=== PATIENT | female | born 1945 | race Caucasian/White ===

== ENCOUNTER → 2021-08-17 | Outpatient (CLI) | payer MEDICARE, OTHER | END | disposition home or self-care (01) | LOC: CARD DIAG 14:58 | PROVIDERS: ATTEND Nurse Practitioner | DX: I34.0 Nonrheumatic mitral (valve) insufficiency (principal); I10 Essential (primary) hypertension | CPT/HCPCS: 93306 ==

== ENCOUNTER 2022-07-18 07:53 | Emergency (ER) | payer MEDICARE, OTHER ==
[~2022-07-18] VITALS: Ht 157.5 cm; Wt 100.0 kg
[~2022-07-18 07:53] MED LIST: MORP15TA PO
[2022-07-18 09:12] LABS: BASOPHILS % (AUTO) 0.4 % (0-1); EOSINOPHILS % (AUTO) 0.1 % (0-6); HEMATOCRIT 30.7 % (35.0-45.0); HEMOGLOBIN 10.3 g/dl (12.0-16.0); LYMPHOCYTES # (AUTO) 0.7 X10'3 (1.1-4.8); LYMPHOCYTES % (AUTO) 9.8 % (21-51); MEAN CORPUSCULAR HEMOGLOBIN 31.7 PG (27.0-31.0); MEAN CORPUSCULAR HGB CONC 33.5 g/dL (33.0-36.5); MEAN CORPUSCULAR VOLUME 94.7 FL (78-98); MEAN PLATELET VOLUME 6.8 FL (7.4-10.4); MONOCYTES # (AUTO) 0.6 X10'3 (0-0.9); NEUTROPHILS # (AUTO) 5.5 X10'3 (1.8-7.7); NEUTROPHILS % (AUTO) 80.7 % (42-75); PLATELET COUNT 494 X10'3 (140-440); RED BLOOD COUNT 3.24 X10'6 (4.20-5.60); RED CELL DISTRIBUTION WIDTH 17.2 % (11.5-14.5); WHITE BLOOD COUNT 6.8 X10'3 (4.5-11.0)
[2022-07-18 09:31] LABS: ACETAMINOPHEN 14.6 UG/ML (10-30); ALANINE AMINOTRANSFERASE 15 U/L (12-78); ALBUMIN 2.5 G/DL (3.4-5.0); ALBUMIN/GLOBULIN RATIO 0.7 (1.1-1.5); ALKALINE PHOSPHATASE 73 IU/L (46-116); ANION GAP 4 (8-16); ASPARTATE AMINO TRANSFERASE 15 U/L (10-37); BILIRUBIN,TOTAL 0.4 MG/DL (0.1-1.0); BLOOD UREA NITROGEN 28 MG/DL (7-18); CALCIUM 8.7 MG/DL (8.5-10.1); CHLORIDE 98 MMOL/L (99-107); ETHANOL < 0.010 GM/DL (0.0-0.010); GLUCOSE 110 MG/DL (70-104); POTASSIUM 3.7 MMOL/L (3.5-5.1); SODIUM 132 MMOL/L (135-145); TOTAL CARBON DIOXIDE 29.6 MMOL/L (24-32); eGFR 70 ML/MIN
[2022-07-18 21:58] LABS: CLARITY,URINE SLIGHTLY CLOUDY (Clear); COLOR,URINE YELLOW (Yellow); GLUCOSE, URINE NEGATIVE (Neg); KETONES,URINE 15 mg/dl (Neg); LEUKOCYTE ESTERASE ,URINE NEGATIVE (Neg); NITRITES, URINE NEGATIVE (Neg); OCCULT BLOOD,URINE NEGATIVE (Neg); PH,URINE 5.5 (4.8-8.0); PROTEIN,URINE 30 mg/dl (Neg)
[2022-07-18 22:03] LABS: UA COLLECTION TYPE NON-SPECIFIED
[2022-07-18 22:06] LABS: HYALINE CASTS >30 /LPF (NEGATIVE)
[2022-07-18 22:07] LABS: BACTERIA,URINE 4+ /HPF (Neg); SQUAMOUS EPITHELIAL CELL,UR MANY /LPF (FEW)
[2022-07-18 22:10] LABS: MUCUS STRANDS MODERATE /LPF (Neg)
[2022-07-18 22:13] LABS: URINE AMPHETAMINE SCREEN NEGATIVE (Neg); URINE BARBITUATE SCREEN NEGATIVE (Neg); URINE BENZODIAZEPINES SCREEN NEGATIVE (Neg); URINE CANNABINOID SCREEN NEGATIVE (Neg); URINE COCAINE SCREEN NEGATIVE (Neg); URINE METHADONE SCREEN NEGATIVE (Neg); URINE OPIATE SCREEN POSITIVE (Neg); URINE PHENCYCLIDINE SCREEN NEGATIVE (Neg)
[2022-07-18] MEDS ORDERED: IRBE150T51 PO (23:11)
[2022-07-18] MEDS ORDERED: AMLO-314 PO (23:11)
[2022-07-18 23:12] VITALS: BP 163/72
[2022-07-19] MEDS ORDERED: acetaminophen 325mg tablet PO ONE (00:35)
[2022-07-19] MEDS ORDERED: ondansetron 4mg rapidly disintigrating tab PO ONE (03:00)
[2022-07-19] MEDS ORDERED: ibuprofen tablet 400 MG TABLET PO ONE (03:55)
--- NOTE | 2022-07-19 04:06 | NUR ---
PT C/O PAIN IN LOWER LEGS, NOTIFIED AND MEDS ORDERED. PT REPOSITIONED IN CHAIR WITH LEGS ELEVATED
--- NOTE | 2022-07-19 08:19 | NUR ---
Received pt to [facility] #27 from main ED. Pt was transported via wheelchair, with PCT. Pt calm.
--- NOTE | 2022-07-19 08:30 | NUR ---
Patient asking for food. RN sent up a late tray request. Patient's [id number] at bedside. No distress observed. Continue to monitor.
[2022-07-19] MEDS ORDERED: FURO-150 PO (08:36)
[2022-07-19] MEDS ORDERED: ATOR10TA87 PO (08:36)
[2022-07-19] MEDS ORDERED: LIDO40SO4 TOP (08:36)
--- NOTE | 2022-07-19 09:31 | NUR ---
BREAKING PRIMARY RN AT THIS TIME ,SPOKE TO DR GOODE AND INFORMED THAT PT IS C/O NAUSEA REQUESTING FOR NAUSEA MEDS,TELE ORDER TO GIVE PHENERGAN 25 MG PO ONCE FOR NAUSEA.
[2022-07-19] MEDS ORDERED: proMETHazine 25mg tablet PO ONE (09:35)
--- NOTE | 2022-07-19 11:13 | NUR ---
Patient moved to a more private room, bed 21. Patient's [id number] sitting with patient at bedside. Continue to monitor.
--- NOTE | 2022-07-19 11:45 | NUR ---
Lila RAZA, evaluating patient.
== END 2022-07-19 13:25 | disposition home or self-care (01) ==
LOC: ER 07:53
DX: F32.A Depression, unspecified (principal); Z20.822 Contact with and (suspected) exposure to COVID-19; R45.851 Suicidal ideations; G89.29 Other chronic pain; I87.2 Venous insufficiency (chronic) (peripheral); L03.115 Cellulitis of right lower limb; L03.116 Cellulitis of left lower limb; Z88.5 Allergy status to narcotic agent; Z91.09 Other allergy status, other than to drugs and biological substances
CPT/HCPCS: 36415; 80053; 80305; 80320; 80329; 81001; 84443; 85025; 87811; 99285; Q0169; A6446; A6449